=== PATIENT | female | born 1955 | race Caucasian/White ===

== ENCOUNTER → 2025-09-05 12:17 | Outpatient (CLI) | payer MEDICARE, OTHER, SELFPAY ==
--- NOTE | 2025-09-05 12:19 | DI.MRI.S_ITS ---
PROCEDURE: MR KNEE RT WO CON INDICATIONS: right knee pain TECHNIQUE: Noncontrast sagittal PD fast spin echo and T2 fast spin echo with fat saturation, sagittal 3-D FLASH with fat saturation; coronal T1 spin echo and PD fast spin echo with fat saturation, and axial PD fast spin echo with fat saturation through the knee. COMPARISON: None. FINDINGS: Image quality: Excellent. Anterior cruciate ligament: Intact. Posterior cruciate ligament: Intact. Medial collateral ligament: Remote prior low-grade sprain of the proximal medial collateral ligament. Lateral collateral ligament: Suspected remote prior low-grade sprain of the lateral collateral ligament. Medial meniscus: High-grade versus complete radial tearing at the posterior root attachment of the medial meniscus. Intrasubstance signal is seen at the posterior horn and body the approaching the free edge margin. Minimal extrusion of the meniscal body. Lateral meniscus: Intact. Medial and lateral tendons: The semimembranosus tendon insertions appear intact. Visualized portions of the pes anserinus tendons appear normal. The popliteus tendon is intact. Iliotibial band appears normal. Anterior structures: Borderline patella meli. The quadriceps and patellar tendons appear intact. No patellar subluxation. No femoral trochlear dysplasia or ventral trochlear prominence. Mild edema at the superolateral aspect of the infrapatellar fat pad. Bones: No bone marrow contusions or fractures. Medial femorotibial cartilage: High-grade versus full-thickness cartilage loss in the weight-bearing portion of the medial femorotibial compartment with small marginal osteophytes. Lateral femorotibial cartilage: Mild partial-thickness surface cartilage irregularity, most notably at the far posterior portion of the lateral femoral condyle. Patellofemoral cartilage: Full-thickness cartilage loss at the median ridge and medial facet of the patella with mild subchondral edema. High-grade cartilage loss at the inferior trochlear groove. Soft tissues: Small joint effusion. Trace medial popliteal cyst. Ganglion cyst anterior to the medial tibial plateau measures 14 x 4 x 10 mm (/). Additional ganglion cyst is seen at the adjacent to the origin of the lateral head of the gastrocnemius muscle measuring 26 x 13 x 7 mm. IMPRESSION: 1. High-grade versus complete radial tearing at the posterior root attachment of the medial meniscus as well as worse on oblique tearing at the posterior horn and body and minimal meniscal extrusion. 2. Remote prior low-grade sprains of the medial and lateral collateral ligaments. 3. 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 Grade 2 chondromalacia in the lateral femorotibial compartment. Areas of grade 4 chondromalacia in are seen in the patellofemoral compartment. 4. Borderline patella meli. Mild edema is seen at the superolateral aspect of the infrapatellar fat pad, which can be seen in the setting of lateral femoral condyle-patellar tendon friction syndrome. 5. Small joint effusion. Small lobular ganglion cyst adjacent to the lateral head of the gastrocnemius origin and near the distal medial collateral ligament insertion. Approved by: Isreal Alfaro M.D. on 09/08/2025 at 8:32
== END ==
LOC: MRI 12:18
PROVIDERS: PCP Family Medicine; Referring Provider Orthopaedic Surgery Adult Reconstructive Orthopaedic Surgery; Visit Provider Orthopaedic Surgery Adult Reconstructive Orthopaedic Surgery
DX: S83.241A Other tear of medial meniscus, current injury, right knee, initial encounter (principal); S83.411A Sprain of medial collateral ligament of right knee, initial encounter; S83.421A Sprain of lateral collateral ligament of right knee, initial encounter; M22.41 Chondromalacia patellae, right knee; M25.561 Pain in right knee; M25.461 Effusion, right knee; M67.461 Ganglion, right knee
CPT/HCPCS: 73721